=== PATIENT | male | born 1940 | race Caucasian/White ===

== ENCOUNTER 2017-05-31 19:30 | Inpatient (IN) | payer MEDICARE ==
[~2017-05-31] VITALS: Ht 190.5 cm; Wt 100.0 kg
[~2017-05-31 19:30] MED LIST: ADVIL200 MG PO
--- NOTE | 2017-05-31 19:30 | NUR ---
PT TO ROOM 6 BY EMS FOR GENERAL WEAKNESS. PT HAS TEMP 102.3
--- NOTE | 2017-05-31 19:31 | NUR ---
PT HAS REDNESS TO RIGHT FOOR BY GREAT TOE.
[2017-05-31 20:08] LABS: HEMATOCRIT 31.2 % (39.0-50.0); HEMOGLOBIN 10.8 g/dl (14.0-18.0); IMMATURE GRANULOCYTES 0.7 % (0.0-1.0); MEAN CELL VOLUME 94.8 fL CALC (80.0-100.0); MEAN CORPUSCULAR HGB 32.8 pG CALC (26.0-32.0); MEAN CORPUSCULAR HGB CONC 34.6 g/L CALC (32.0-36.0); NEUT# 13.13 thou/uL (1.82-7.42); RED BLOOD COUNT 3.29 mill/uL (4.70-6.10); RED CELL DISTRI WIDTH 12.8 % (11.5-15.5)
[2017-05-31 20:22] LABS: ALBUMIN 4.6 g/dL (3.2-5.0); BILIRUBIN, TOTAL 1.2 mg/dL (0.0-1.4); CALCIUM 9.3 mg/dL (8.4-10.2); CREATININE 1.9 mg/dL (0.7-1.3); POTASSIUM 4.3 mmol/l (3.5-5.1); TOTAL PROTEIN 7.8 g/dL (6.3-8.2)
--- NOTE | 2017-05-31 20:45 | NUR ---
FAMILY AT BEDSIDE. INFORMED FAMILY AND PT THAT URINE IS NEEDED AND PT TO HAVE CT BRAIN.
--- NOTE | 2017-05-31 21:48 | NUR ---
PT TO CT AND URINE COLLECTED, SENT TO LAB.
[2017-05-31 22:25] LABS: URINE BILIRUBIN - DIPSTICK NEGATIVE (NEGATIVE); URINE BLOOD DIPSTICK SMALL (NEGATIVE); URINE COLOR YELLOW; URINE GLUCOSE - DIPSTICK NEGATIVE (NEGATIVE); URINE KETONE 15 mg/dL (NEGATIVE); URINE LEUK ESTERASE NEGATIVE (NEGATIVE); URINE NITRITE - DIPSTICK NEGATIVE (Negative); URINE PROTEIN - DIPSTICK NEGATIVE (NEG-TRACE); URINE UROBILINOGEN - DIPSTICK 0.2 E.U./dL (0.2)
[2017-05-31 22:29] LABS: URINE CLARITY SLIGHT CLOUDY
[2017-05-31 22:45] LABS: URINE BACTERIA FEW hpf; URINE MUCUS FEW hpf (NONE-FEW); URINE RBC 0-2 RBC/hpf (0-5); URINE SQUAMOUS EPITHELIAL CELL FEW EPI/hpf (0-FEW); URINE WBC 0-2 WBC/hpf (0-5)
--- NOTE | 2017-05-31 22:49 | NUR ---
DR ANDRES IN TO GO OVER RESULTS AND PLAN OF ADMIT.
--- NOTE | 2017-05-31 23:15 | NUR ---
CALLED FLOOR TO GIVE REPORT. NADIA WILL CALL BACK.
--- NOTE | 2017-05-31 23:25 | NUR ---
REPEAT LACTIC ACID IS 3.8, DR ANDRES INFORMED. REPORT GIVEN TO JOSEPHINE ZUNIGA
--- NOTE | 2017-05-31 23:45 | NUR ---
PT ARRIVED TO UNIT VIA STRETCHER WITH ER STAFF. PT TRANSFERED FROM STRETCHER TO BED WITH MINIMAL ASSIST. ORIENTED TO ROOM AND CALL LIGHT SYSTEM. PLAN OF CARE DISCUSSED. PT ENCOURAGED TO VERBALIZE CONCERNS. STATES UNDERSTANDING. SAFETY MEASURES IN PLACE. CALL LIGHT.
--- NOTE | 2017-05-31 23:50 | NUR ---
Admission Note Report Given to: JOSEPHINE ZUNIGA Transported by: Wheelchair X Stretcher Transported with: X Nurse Transporter X Patent IV O2 X [employer] Compliance Manager
[2017-05-31] MEDS ORDERED: METFORMIN500 MG PO (23:56)
[2017-05-31] MEDS ORDERED: GLIPIZIDE5 MG PO (23:57)
[2017-05-31] MEDS ORDERED: METOPROL TAR25 MG PO (23:57)
[2017-05-31] MEDS ORDERED: FAMOTIDINE20 M1 PO (23:58)
[2017-06-01 01:06] VITALS: BP 113/59
--- NOTE | 2017-06-01 04:10 | NUR ---
PT FOUND ATTEMPTING TO GET OUT OF BED WITHOUT ASSISTANCE. STATES HE HAS TO VOID; INCONTINENT OF URINE. PT REMINDED TO CALL FOR ASSISTANCE WHEN NEEDED. NO CHANGES IN ASSESSMENT NOTED. CONDITION IS STABLE. SAFETY MEASURES IN PLACE. CALL LIGHT WITHINR REACH.
[2017-06-01 05:20] VITALS: BP 141/64
[2017-06-01 07:22] VITALS: BP 134/72
--- NOTE | 2017-06-01 08:11 | NUR ---
Vancomycin consult Age: 77 years Weight: 100 kg Height: 190.5 cm Gender: Male SCR: 1.9 mg/dl Dosing weight: 100 kg IBW: 84.50 kg CRCL (ml/min): 40.1 Sonido (hr-1): 0.038 Half-life (hrs): 18.24 Vd (liters): 70.00 (factor: 0.7 L/kg) Vancomycin 1500 mg q24 hrs to produce a predicted peak of 35 mcg/ml and a predicted trough of 15 mcg/ml based on (Population-based pharmacokinetic analysis).
--- NOTE | 2017-06-01 08:30 | NUR ---
PT SITTING ON SIDE OF BED; IVF STARTED AT THIS TIME; PT DENIES PAIN, SOB; ENCOURAGE USE OF CALL LIGHT IF ANY ASSISTANCE IS NEEDED; WILL CONTINUE TO MONITOR.
--- NOTE | 2017-06-01 10:00 | NUR ---
PT CONTINUES TO C/O BACK PAIN 04/07; MEDICATED ORDERED; CALL PROCTOR WITHIN REACH; WILL CONTINUE TO MONITOR.
--- NOTE | 2017-06-01 11:01 | NUR ---
PT VISITING WITH FAMILY; NO COMPLAINTS VOICED; CALL PROCTOR WITHIN REACH; WILL CONTINUE TO MONITOR.
[2017-06-01 11:20] LABS: HEMATOCRIT 28.5 % (39.0-50.0); HEMOGLOBIN 9.7 g/dl (14.0-18.0); IMMATURE GRANULOCYTES 1.1 % (0.0-1.0); MEAN CELL VOLUME 95.3 fL CALC (80.0-100.0); MEAN CORPUSCULAR HGB 32.4 pG CALC (26.0-32.0); NEUT# 11.3 thou/uL (1.82-7.42); RED BLOOD COUNT 2.99 mill/uL (4.70-6.10); RED CELL DISTRI WIDTH 13.1 % (11.5-15.5)
[2017-06-01 11:28] LABS: CHOLESTEROL HDL RATIO 3.4 (<4.4 (CALC))
[2017-06-01 11:28] LABS: CALCIUM 8.6 mg/dL (8.4-10.2); CREATININE 2.1 mg/dL (0.7-1.3); POTASSIUM 3.7 mmol/l (3.5-5.1)
[2017-06-01 11:54] VITALS: BP 105/56
--- NOTE | 2017-06-01 14:33 | NUR ---
PT RESTING WITH EYES CLOSED; NO S/SX OF DISTRESS NOTED; IVF INFUSING WELL; CALL PROCTOR WITHIN REACH; WILL CONTINUE TO MONITOR.
[2017-06-01 15:26] VITALS: BP 127/69
--- NOTE | 2017-06-01 19:32 | NUR ---
BEDSIDE REPORT RECEIVED FROM GEORGI NORIEGA. PT SITTING UP IN BED WATCHING TV. DENIES PAIN AT THIS TIME. RESPIRATIONS EVEN AND UNLABORED. PLAN OF CARE REVIEWED. PT ENCOURAGED TO VERBALIZE CONCERNS. STATES UNDERSTANDING. SAFETY MEASURES IN PLACE. CALL LIGHT WITHIN REACH.
[2017-06-01 20:17] VITALS: BP 148/81
--- NOTE | 2017-06-02 | NUR ---
PT ASLEEP AT THIS TIME. NO SIGNS OF DISTRESS NOTED. RESPIRATIONS EVEN AND UNLABORED. ABT INFUSED WITHOUT DIFFICULTY; NO ADVERSE REACTIONS NOTED. SAFETY MEASURES REMAIN IN PLACE. CALL LIGHT WITHIN REACH.
[2017-06-02 04:05] VITALS: BP 135/70
--- NOTE | 2017-06-02 04:10 | NUR ---
PT UP TO VOID IN URINAL AT THIS TIME. DENIES PAIN. RESPIRATIONS EVEN AND UNLABORED. NO CHANGES IN ASSESSMENT NOTED. CONDITION IS STABLE. SAFETY MEASURES IN PLACE. CALL LIGHT WITHIN REACH.
[2017-06-02 05:48] LABS: HEMATOCRIT 28.7 % (39.0-50.0); HEMOGLOBIN 9.7 g/dl (14.0-18.0); IMMATURE GRANULOCYTES 0.9 % (0.0-1.0); MEAN CORPUSCULAR HGB 32.8 pG CALC (26.0-32.0); MEAN CORPUSCULAR HGB CONC 33.8 g/L CALC (32.0-36.0); NEUT# 10.44 thou/uL (1.82-7.42); RED BLOOD COUNT 2.96 mill/uL (4.70-6.10); RED CELL DISTRI WIDTH 13.2 % (11.5-15.5)
[2017-06-02 06:10] LABS: ALBUMIN 3.6 g/dL (3.2-5.0); BILIRUBIN, TOTAL 0.9 mg/dL (0.0-1.4); CALCIUM 8.1 mg/dL (8.4-10.2); POTASSIUM 3.9 mmol/l (3.5-5.1); TOTAL PROTEIN 6.6 g/dL (6.3-8.2)
--- NOTE | 2017-06-02 07:27 | NUR ---
BS REPORT RECEIVED FROM NIGHT NURSE; PT.DID NOT AWAKE TO OUR ENTERING ROOM, CALL LIGHT IS W/IN REACH
[2017-06-02 08:06] VITALS: BP 134/60
--- NOTE | 2017-06-02 08:07 | NUR ---
PT.ASSESSED,VS,MORNING MEDICATIONS ADMINISTERED; PT. LUNGS CLEAR, TRACE EDEMA IN LOWER EXTREMETIES/RIGHT LOWER LEG SLIGHTLY WARM TO TOUCH AND SLIGHT REDNESS; PT.IS LOC X3 AND GETTING READY TO EAT BREAKFAST; VANCOMYCIN ANTIBIOTIC THERAPY IS RUNNING AT THIS TIME; PT.INSTRUCTED TO CALL IF ANY NEEDS ARISE
--- NOTE | 2017-06-02 11:30 | NUR ---
PT.MEDICATED W/2 UNITS NOVOLOG FOR BS OF 230 / SLIDING SCALE DOSE; PT. AT BS AND VERBALIZED CONCERN THAT HE IS NOT GETTING HIS "NORMAL DIABETIC MEDICATIONS PO," I EXPLAINED TO HER AND THE PT.THAT WE WERE HOLDING THE GLIPIZIDE AND GLUCOPHAGE DUE TO KIDNEY FUNCTION LAB RESULTS AND GIVING HIM NS IV FLUIDS; SHE EXPRESSED CONCERN AND QUESTIONED THAT THE BEST TREATMENT, I EXPLAINED TO HER THAT THE DR.WOULD BE IN TO DISCUSS POC FURTHER WITH THEM UPON ROUNDING W/PT.S
[2017-06-02] MEDS ORDERED: SIMVASTATIN20 MG PO (14:35)
[2017-06-02] MEDS ORDERED: ASPIRIN LOW81 M1 PO (14:35)
[2017-06-02] MEDS ORDERED: BACTRIM DS1 TAB PO (14:36)
[2017-06-02] MEDS ORDERED: KEFLEX500 M1 PO (14:37)
--- NOTE | 2017-06-02 15:10 | NUR ---
PT.DOWN FOR ECHOCARDIOGRAM VIA WC
--- NOTE | 2017-06-02 15:10 | NUR ---
PT.OFF FLOOR TO ECHOCARDIOGRAM ACCOMPANIED BY REPORTS DEVELOPER,VIA WC
--- NOTE | 2017-06-02 15:38 | NUR ---
PT.DC'D AND LEAVING FLOOR VIA WC ACCOMPANIED BY FOREMAN/PILE DRIVING AND ERECTION AND ; PT.LEFT IN STABLE CONDITION
--- NOTE | 2017-06-02 15:38 | NUR ---
PT.ARRIVED BACK TO FLOOR FROM X-RAY VIA WC, REQUESTING PAIN MEDIATION AND COFFEE
--- NOTE | 2017-06-03 09:28 | NUR ---
Preliminary blood cultures, called to pharmacy by Jonah, relayed to Dr Goldsmith for review. Gram positive cocci growing in 1 bottle, possible contamination. Pt tx for cellulitis of foot, with T2DM and renal dysfunction. Pt D/C'd with rx Bactrim DS & Keflex.
--- NOTE | 2017-06-05 10:54 | NUR ---
Final blood culture shows 1 of 2 sets growing coagulase negative staph. Organism is likely a contaminant. Contacted pt who reports he is feeling well, with no fever or chills. Pt did report lack of appetite, however likely due to antibiotic use. Advised to return to ED if s/sx of infection worsen, continue current antibiotic therapy, and follow-up with PCP.
== END 2017-06-02 15:38 | disposition home or self-care (01) | DRG 639 ==
LOC: ED 19:30 → ED-I 22:40 → ED 23:07 → MS2 23:08
PROVIDERS: Internal Medicine; Nurse Practitioner Family; ADMIT Internal Medicine; ATTEND Internal Medicine
DX: E11.628 Type 2 diabetes mellitus with other skin complications (principal); N17.9 Acute kidney failure, unspecified; L03.031 Cellulitis of right toe; I12.9 Hypertensive chronic kidney disease with stage 1 through stage 4 chronic kidney disease, or unspecified chronic kidney disease; E11.22 Type 2 diabetes mellitus with diabetic chronic kidney disease; N18.9 Chronic kidney disease, unspecified; J32.9 Chronic sinusitis, unspecified; M15.9 Polyosteoarthritis, unspecified; Z79.84 Long term (current) use of oral hypoglycemic drugs
CPT/HCPCS: J3370

== ENCOUNTER 2019-10-11 22:09 | Inpatient (IN) | payer MEDICARE ==
[~2019-10-11] VITALS: Ht 190.5 cm; Wt 100.9 kg
[~2019-10-11 22:09] MED LIST changes: +ASPIRIN LOW81 M1 PO; +BACTRIM DS1 TAB PO; +FAMOTIDINE20 M1 PO; +GLIPIZIDE5 MG PO; +KEFLEX500 M1 PO; +METFORMIN500 MG PO; +METOPROL TAR25 MG PO; +SIMVASTATIN20 MG PO
[2019-10-11 22:50] LABS: HEMOGLOBIN 11.6 g/dl (14.0-18.0); IMMATURE GRANULOCYTES 0.3 % (0.0-5.0); MEAN CELL VOLUME 91.2 fL CALC (80.0-100.0); MEAN CORPUSCULAR HGB 29.1 pG CALC (26.0-32.0); NEUT# 4.8 thou/uL (1.82-7.42); RED BLOOD COUNT 3.98 mill/uL (4.70-6.10); RED CELL DISTRI WIDTH 18.5 % (11.5-15.5)
[2019-10-11 22:55] LABS: HEMATOCRIT 36.3 % (39.0-50.0)
[2019-10-11 23:07] LABS: ALBUMIN 4.2 g/dL (3.2-5.0); BILIRUBIN, TOTAL 1.2 mg/dL (0.0-1.4); CREATININE 2.3 mg/dL (0.7-1.3); POTASSIUM 4.5 mmol/l (3.5-5.1); TOTAL PROTEIN 8.1 g/dL (6.3-8.2)
[2019-10-11 23:12] LABS: INTERNATIONAL NORMALIZED RATIO 1.4 RATIO (0.7-1.3); PROTHROMBIN TIME 14.8 SECONDS (9.0-12.5)
[2019-10-12] VITALS (13 sets, daily range): BP systolic 96–131; BP diastolic 54–78
[2019-10-12 01:59] LABS: URINE BILIRUBIN - DIPSTICK NEGATIVE (NEGATIVE); URINE BLOOD DIPSTICK MODERATE (NEGATIVE); URINE COLOR YELLOW; URINE GLUCOSE - DIPSTICK NEGATIVE (NEGATIVE); URINE KETONE TRACE mg/dL (NEGATIVE); URINE LEUK ESTERASE NEGATIVE (NEGATIVE); URINE PROTEIN - DIPSTICK 100 mg/dL (NEG-TRACE); URINE SPECIFIC GRAVITY 1.025; URINE UROBILINOGEN - DIPSTICK 0.2 E.U./dL (0.2)
[2019-10-12 02:02] LABS: URINE NITRITE - DIPSTICK NEGATIVE (Negative)
[2019-10-12 02:05] LABS: URINE BACTERIA MODERATE hpf; URINE EPITHELIAL CELLS FEW EPI/hpf (0-FEW)
[2019-10-12 02:06] LABS: URINE AMORPH SEDIMENT MODERATE hpf (NONE-FER)
[2019-10-12 02:07] LABS: BARBITURATES NEGATIVE (NEGATIVE); COCAINE NEGATIVE (NEGATIVE); METHADONE NEGATIVE (NEGATIVE); OXCYCODONE NEGATIVE (NEGATIVE); TETRAHYDROCANNABIONOL NEGATIVE (NEGATIVE); TRICYLIC ANTIDEPRESSANTS NEGATIVE (NEGATIVE)
[2019-10-12] MEDS ORDERED: LISINOPRIL20 MG PO (04:22)
[2019-10-12] MEDS ORDERED: SODIUM PO (04:24)
[2019-10-12 07:27] LABS: ALBUMIN 3.6 g/dL (3.2-5.0); BILIRUBIN, TOTAL 1.1 mg/dL (0.0-1.4); CREATININE 2.3 mg/dL (0.7-1.3); POTASSIUM 4.3 mmol/l (3.5-5.1); TOTAL PROTEIN 7.1 g/dL (6.3-8.2)
[2019-10-13] VITALS (12 sets, daily range): BP systolic 93–119; BP diastolic 56–75
[2019-10-13 05:05] LABS: HEMATOCRIT 36.6 % (39.0-50.0); HEMOGLOBIN 11.6 g/dl (14.0-18.0); IMMATURE GRANULOCYTES 0.6 % (0.0-5.0); MEAN CELL VOLUME 93.4 fL CALC (80.0-100.0); MEAN CORPUSCULAR HGB 29.6 pG CALC (26.0-32.0); MEAN CORPUSCULAR HGB CONC 31.7 g/L CALC (32.0-36.0); NEUT# 3.78 thou/uL (1.82-7.42); RED BLOOD COUNT 3.92 mill/uL (4.70-6.10); RED CELL DISTRI WIDTH 18.6 % (11.5-15.5)
[2019-10-13 05:27] LABS: CREATININE 2.3 mg/dL (0.7-1.3); POTASSIUM 4.2 mmol/l (3.5-5.1)
[2019-10-14 00:01] VITALS: BP 96/66
[2019-10-14 02:00] VITALS: BP 108/69
[2019-10-14 04:00] VITALS: BP 110/60
[2019-10-14 06:00] VITALS: BP 108/69
[2019-10-14 08:00] VITALS: BP 116/74
[2019-10-14] MEDS ORDERED: MEDDOSEPAK PO (08:50)
[2019-10-14] MEDS ORDERED: TAMIFLU30 MG PO (08:53)
[2019-10-14] MEDS ORDERED: ZITHROMAX500 MG PO (08:54)
[2019-10-14 10:00] VITALS: BP 112/62
== END 2019-10-14 10:10 | disposition home or self-care (01) | DRG 865 ==
LOC: ED 22:09 → ED-I 10-12 02:40 → ED 10-12 02:54 → MS2 10-12 03:04 → ICU 10-12 04:50
PROVIDERS: Emergency Medicine; Nurse Practitioner Family; ADMIT Internal Medicine; ATTEND Internal Medicine
DX: J10.81 Influenza due to other identified influenza virus with encephalopathy (principal); J96.01 Acute respiratory failure with hypoxia; N17.9 Acute kidney failure, unspecified; L97.829 Non-pressure chronic ulcer of other part of left lower leg with unspecified severity; J10.1 Influenza due to other identified influenza virus with other respiratory manifestations; E11.22 Type 2 diabetes mellitus with diabetic chronic kidney disease; I12.9 Hypertensive chronic kidney disease with stage 1 through stage 4 chronic kidney disease, or unspecified chronic kidney disease; E11.622 Type 2 diabetes mellitus with other skin ulcer; N18.3 Chronic kidney disease, stage 3 (moderate); E11.65 Type 2 diabetes mellitus with hyperglycemia; E78.5 Hyperlipidemia, unspecified; M89.49 Other hypertrophic osteoarthropathy, multiple sites; Z79.84 Long term (current) use of oral hypoglycemic drugs
CPT/HCPCS: G9019

== ENCOUNTER 2019-10-21 | Emergency (ER) | payer MEDICARE ==
[~2019-10-21] MED LIST changes: +LISINOPRIL20 MG PO; +MEDDOSEPAK PO; +SODIUM PO; +TAMIFLU30 MG PO; +ZITHROMAX500 MG PO
== END 2019-10-21 11:26 | disposition expired ==
PROC: 5A12012 Performance of Cardiac Output, Single, Manual (ICD-10-PCS; principal; 2019-10-21)
DX: I46.9 Cardiac arrest, cause unspecified (principal); I10 Essential (primary) hypertension